=== PATIENT | female | born 1975 | race Caucasian/White ===

== ENCOUNTER 2016-08-14 15:35 | Emergency (ER) | payer OTHER ==
[~2016-08-14] VITALS: Ht 167.6 cm; Wt 69.4 kg
[2016-08-14 16:58] LABS: ADD MIUA? YES; BILIRUBIN NEGATIVE; BLOOD NEGATIVE; COLOR YELLOW ((YELLOW)); GLUCOSE (STRIP) NEGATIVE; KETONES NEGATIVE; LEUKOCYTES NEGATIVE; NITRITE NEGATIVE; PROTEIN (STRIP) NEGATIVE; SPECIFIC GRAVITY 1.018 (1.000-1.030); UROBILINOGEN 0.2 MG/DL (0.2-1.0)
[2016-08-14 17:11] LABS: BACTERIA 2+ /HPF; EPITHELIAL CELLS 1+ /HPF; MUCUS NONE SEEN /LPF; RED BLOOD CELLS 0-5 /HPF (0-5); UCUL ADDED? NO; WHITE BLOOD CELLS 0-5 /HPF (0-5)
[2016-08-14 18:43] LABS: HEMATOCRIT 38.9 % (36.0-46.0); MCH 31.1 PG (29.0-34.0); MCHC 33.9 G/DL (30.0-36.0); MCV 91.7 FL (83-99); MEAN PLAT.VOLUME 11.2 uM^3 (9.5-12.4); PLATELET COUNT 280 K/uL (156-360); RBC DIS.WIDTH-CV 12.9 % (11.8-14.6); RBC DIS.WIDTH-SD 42.5 % (39-53); RED BLOOD COUNT 4.24 M/uL (3.80-5.20); WHITE BLOOD COUNT 9.4 K/uL (4.1-10.2)
[2016-08-14 18:52] LABS: CHLORIDE 106 mEq/L (99-109)
[2016-08-14 18:53] LABS: SODIUM 138 mEq/L (136-147)
[2016-08-14 18:55] LABS: GLUCOSE 87 mg/dL (70-99)
[2016-08-14 18:56] LABS: ANION GAP 8 MEQ/L (2-14)
[2016-08-14 18:57] LABS: TOTAL BILIRUBIN 0.5 mg/dL (0.0-1.0)
[2016-08-14 18:58] LABS: ALKALINE PHOSPHATASE 49 IU/L (3-129); GFR ESTIMATE (CALCULATED) > 59 mL/min/
[2016-08-14 19:00] LABS: UREA NITROGEN (BUN) 16 mg/dL (9-23)
[2016-08-14 19:07] LABS: QUANTITATIVE HCG < 4.0 MIU/ML
[2016-08-14] MEDS ORDERED: MEDROL DOSEPAK4 MG PO (20:26)
[2016-08-14 21:06] VITALS: BP 118/80
== END 2016-08-14 21:07 | disposition home or self-care (01) ==
LOC: EME 15:35
PROVIDERS: Physician Assistant
DX: M54.5 Low back pain (principal)
CPT/HCPCS: 74176; 80053; 81003; 84702; 85027; 87086; 99281; 99284